=== PATIENT | male | born 1970 ===

== ENCOUNTER 2021-02-23 08:03 | Observation (INO) | payer BC ==
[2021-02-22 12:37] LABS: Absolute Lymphocytes (CBC) 1.7 K/uL (0.7-4.9); Basophils % 0.8 % (0-1.3); Hematocrit 49.4 % (39.6-49.0); Lymphocytes % 21.8 % (15.3-44.8); MPV 9.5 fL (7.6-11.3); RBC Red Blood Cell Count 5.57 M/uL (4.33-5.43)
[2021-02-22 12:52] LABS: Potassium 3.9 mmol/L (3.5-5.1)
--- NOTE | 2021-02-22 13:27 | RAD REPORT ---
EXAM DESCRIPTION: RAD - Chest Pa And Lat (2 Views) - 02/22/2021 1:19 pm CLINICAL HISTORY: PRE-OP SDS COMPARISON: No comparisons FINDINGS: Lines: None. Lungs: No evidence of edema or pneumonia. Pleural: No significant pleural effusions or pneumothorax. Cardiac: The heart size is within normal limits. Bones: No acute fractures. Bridging osteophytes in the spine. Other: IMPRESSION: No acute cardiopulmonary disease.
[2021-02-23] MEDS ORDERED: Ringers Lactate 1,000 ML IV ONE (08:42)
[2021-02-23] MEDS ORDERED: MIDAZOLAM HCL 2 MG/2 ML INJ ONE (11:19)
[2021-02-23] MEDS ORDERED: LIDOCAINE 1% MPF 5 ML VIAL ONE (11:19)
[2021-02-23] MEDS ORDERED: FENTANYL CITR 100 MCG/2 ML ONE ×2 (11:19→12:55)
[2021-02-23] MEDS ORDERED: propofoL 200 MG/20 ML VIAL IV ONE (11:19)
[2021-02-23] MEDS ORDERED: dexAMETHasone 10 MG/ML VIAL ONE (11:19)
[2021-02-23] MEDS ORDERED: ONDANSETRON 4 MG/2 ML VIAL ONE (11:20)
[2021-02-23] MEDS ORDERED: ROCURONIUM 50 MG/5 ML VIAL IV ONE ×2 (11:20→13:13)
[2021-02-23] MEDS ORDERED: BUPIVACAINE 0.5% PF 10 ML VIAL ONE (11:31)
[2021-02-23] MEDS ORDERED: CIPROFLOXACIN 400mg IV 400 MG/200 ML BAG IV ONE (11:49)
[2021-02-23] MEDS ORDERED: KETOROLAC 30 MG/ML INJ ONE (12:13)
[2021-02-23] MEDS: Ringers Lactate 1,000 ML IV ONE ×2 (12:42→13:45)
[2021-02-23] MEDS ORDERED: GLYCOPYRROLATE 0.2 MG/ML SYR ONE (14:00)
[2021-02-23] MEDS ORDERED: NEOSTIGMINE 1 MG/ML -5 ML ONE (14:01)
[2021-02-23] MEDS ORDERED: MORPHINE 10 MG/ML VIAL ONE (14:18)
--- NOTE | 2021-02-23 14:18 | P.BOP ---
Preoperative diagnosis: Large sigmoid colon incarcerated left inguinal area Postoperative diagnosis: same Primary procedure: Open repair of large incarcerated left inguinal area with mesh Personal Development Educator: IJEOMA ROCA ([employer]) Estimated blood loss: <50cc Specimen: hernia sac Findings: large amt of sigmoid colon incarcerated with adhesions to the sac Anesthesia: General Complications: None Implants: mesh plug and sheet Transferred to: Recovery Room Condition: Good
[2021-02-23] MEDS ORDERED: HYDROMORPHONE HCL 1 MG/ML INJ IV PRN (14:19)
[2021-02-23] MEDS ORDERED: ONDANSETRON 4 MG/2 ML VIAL IV PRN (14:19)
[2021-02-23 15:21] VITALS: O2SAT 93
[2021-02-23] MEDS: NA CHLORIDE 0.9% 1,000 ML IV SCH (16:45)
[2021-02-23] MEDS: HYDROCODONE/APAP 5/325 MG TAB PO PRN ×2 (18:19→23:41)
[2021-02-23 18:29] VITALS: BMI 43.4
[2021-02-23] MEDS: CIPROFLOXACIN 400mg IV 400 MG/200 ML BAG IV SCH (20:03)
[2021-02-23] MEDS ORDERED: TAMSULOSIN 0.4 MG SR CAP PO SCH (21:00)
--- NOTE | 2021-02-23 21:54 | OP ---
Date of Procedure: 02/23/2021 Surgeon: Casey Sky MD Paraffiner: Dr. Magaly Lopez. Preoperative Diagnosis: Large incarcerated left inguinal hernia with large amount of sigmoid colon. Postoperative Diagnosis: Large incarcerated left inguinal hernia with large amount of sigmoid colon. Procedure: Open repair of large incarcerated left inguinal hernia with mesh. Estimated Blood Loss: Less than 50 cc. Specimen: Hernia sac. Findings: Large amount of sigmoid colon incarcerated with adhesions to the hernia sac. This colon i s more than a feet and a half of it going all the way down to the scrotum. The patient is morbidly o bese with a large pannus. This hernia goes all the way down to compressing the left testicle. Proce dures started laparoscopically, but since we cannot reduce this content because of large, we have to convert to an open procedure. Even with that, we have to open the deep inguinal ring large enough to allow to all this content to be reduced. Intestines after all seemed to be viable. Anesthesia: General plus local. Implant: Large mesh, plug, and sheath. Indication: This is a case of a 50-year-old patient, comes to us with a large left inguinal hernia. He has been in pain and discomfort, some time sharp pain in the left area and we are concerned for a bowel compromise. The benefits, alternatives, and risks of laparoscopic versus open repair of left inguinal hernia with mesh fully explained to the patient, which include, but not limited to infection , bleeding, damage to adjacent structures, anesthesia complication, recurrence, chronic pain, CT, and even . He also understands this may not relieve the symptoms. He might need more than one esthela gical intervention. He understands we may be using mesh in that region. Pros and cons of mesh use w ere discussed with the patient. All the questions were answered to his satisfaction and at the end, he did consent for the use of mesh. The patient understands the importance of no heavy lifting. The most important part of losing some weight to minimize recurrence. The patient understood and signed the consent. Description Of Procedure: The patient was brought to the operating room and placed in supine positio n. Anesthesia was done without complication. The abdomen and left inguinal region were prepped and draped in a sterile fashion. This patient is morbidly obese, so we have to put him in Trendelenburg, make an incision in the infraumbilical region to go down to anterior rectus sheath is at least 6 cm. We were able to find the anterior rectus sheath and then moved the muscle laterally, placed pacemak er trocar with a balloon. Basically, we were able to, when the balloon was inflated, remove the ballo on and then after that, placed a 5 mm trocar in the suprapubic area. Once we noted the area and we d eveloped the preperitoneal space, we noticed that this hernia is so big that it cannot be reduced. W e do not want to compromise the bowel and pull it and damage that and after several attempts and we s een that continuing this way was not safe, we proceeded to convert this to an open procedure. We did that by making an incision in the left inguinal region. Incision was carried down to Ravinder's fasci a and then until we find the external oblique aponeurosis. We have to understand this patient also i n that area has a several centimeter of just thick abdomen, but we were able to find that nicely. We opened the external oblique aponeurosis in the direction of the fibers to connect the superficial in guinal ring and then, it will be noted the patient has so much contents in the bowel, and that bowel traveled all the way down to the scrotum. We have to reach down to the scrotum. We noticed this lef t testicle compressed by this sigmoid colon. Carefully and in delicate fashion, we proceeded to sepa rate the spermatic cord away from this hernia sac and when we opened the hernia sac, we see a large a mount of intestines. The content looks viable, but due to the large amount of it, we cannot reduce it back into the abdomen, so we have to go to the deep inguinal ring and try and open that a little bit more enough to be able to then carefully reduce this bowel into the abdomen. Once we have that, we checked the area. We have to remove some adhesions of the large bowel to the hernia sac to be able t o be reduced and we did that without any enterotomies. We twisted the hernia sac, making sure there was no bowel in between and suture ligated that with Prolene x1. This leave a large defect in the in guinal canal, so we have to reconstruct the inguinal canal and the way we did that is by making sure the spermatic cord is safe, put a Kirk in that area and then I proceeded then to place a #1 Prolen e at the pubic tubercle, shelving edge of inguinal ligament and transversalis fascia making sure the nerves were protected at all times. Once we had the floor of the canal reconstructed, then we placed a mesh plug large in the deep inguinal ring and securing that in place with VersaTack and making esthela e that the spermatic cord structures are intact. After we have that, when we placed a mesh sheath, t hat mesh sheath was secured in place to the pubic tubercle with VersaTack, shelving edge of the ingui nal ligament, transversalis fascia, and the tails of the loop around the spermatic cord without stran gulation. Obviously, this took significant amount of time since the large area in this patient, but we were able to do it without any bleeding. So, after that, we proceeded then to bring the ilioingui nal nerve and iliohypogastric nerve that was previously identified and protected into the inguinal ca nal, reconstructed the superficial inguinal ring, closed the external oblique aponeurosis making sure the nerves were not included. The area was irrigated. After that, making sure that the spermatic c ord structures and the testicles are intact without twists, then we proceeded to close the Ravinder's f ascia. We closed also the subcutaneous tissue with chromic and then the skin with francisco. Sponge c ount and instrument count were correct. The patient tolerated the procedure well. The patient was s ent to Recovery in stable condition. I believe this patient will develop an ileus. He has a large a mount of intestines incarcerated in that all the way down to the scrotum. I believe the manipulation of his intestines will give him ileus and it will give his more pain that may not be controlled with medication by mouth. I discussed that with the patient and decision was made to keep the person brittani lyn in observation. We are going to give him clear liquid and hydration tonight. If by tomorrow we can control his pain with p.o. medication, then we may be able to send him home in those. Obvious ly, that bowel has been there for some time, so we are going to cover him with some antibiotics too. We did not see any ischemia, although the bowel being incarcerated for some time, we are going to co meagan him with the antibiotics. We encouraged him ambulation, incentive spirometry, DVT prophylaxis to minimize any chance of DVTs. He understood. He was admitted to the hospital. ANTONIO/LATOSHA Voice ID: [id number] Report ID: [id number]
[2021-02-24] MEDS: NA CHLORIDE 0.9% 1,000 ML IV SCH (00:12)
[2021-02-24 04:00] LABS: Absolute Lymphocytes (CBC) 0.9 K/uL (0.7-4.9); Basophils % 0.3 % (0-1.3); Hematocrit 45.6 % (39.6-49.0); Lymphocytes % 6.1 % (15.3-44.8); MPV 9.5 fL (7.6-11.3); RBC Red Blood Cell Count 5.13 M/uL (4.33-5.43)
[2021-02-24 04:07] LABS: Potassium 4.7 mmol/L (3.5-5.1)
[2021-02-24 06:34] LABS: Blood Morphology Comment NOT SEEN (NOT SEEN); Platelet Estimate ADEQ
[2021-02-24 08:29] VITALS: BP 110/71; TEMP 97
[2021-02-24] MEDS: HYDROCODONE/APAP 5/325 MG TAB PO PRN (08:43)
[2021-02-24] MEDS: CIPROFLOXACIN 400mg IV 400 MG/200 ML BAG IV SCH (08:43)
--- NOTE | 2021-02-24 09:01 | P.DS ---
Admission Date: 02/23/21 Discharge Date: 02/24/21 Disposition: ROUTINE DISCHARGE Discharge Condition: GOOD - Problems (1) Incarcerated left inguinal hernia Current Visit: Yes Status: Acute Hospital Course: unremarkable, tolerating diet and pain medication swithed to PO Vital Signs/Physical Exam: Temp Pulse Resp BP Pulse Ox 97.0 F 73 16 110/71 94 02/24/21 08:00 02/24/21 08:00 02/24/21 08:43 02/24/21 08:00 02/24/21 08:43 General: Alert, In no apparent distress, Oriented x3, Cooperative HEENT: PERRLA Neck: Supple Respiratory: Normal air movement Cardiovascular: No edema, Normal pulses Gastrointestinal: Soft and benign (intact surgical site) Musculoskeletal: No erythema, No tenderness, No warmth Integumentary: No rashes, No breakdown Neurological: Normal speech Urinary: Other (voiding without a problem) Laboratory Data at Discharge: WBC 14.20 K/uL (4.3-10.9) H D 02/24/21 03:23 Hgb 14.8 g/dL (13.6-17.9) 02/24/21 03:23 Hct 45.6 % (39.6-49.0) 02/24/21 03:23 Plt Count 195 K/uL (152-406) 02/24/21 03:23 Sodium 137 mmol/L (136-145) 02/24/21 03:23 Potassium 4.7 mmol/L (3.5-5.1) 02/24/21 03:23 BUN 19 mg/dL (7-18) H 02/24/21 03:23 Creatinine 1.15 mg/dL (0.55-1.3) 02/24/21 03:23 Glucose 174 mg/dL (74-106) H 02/24/21 03:23 Home Medications: Albuterol Inhaler [Ventolin Inhaler*] 2 inhaler PO QID PRN 02/22/21 Ciprofloxacin HCl [Cipro 500 MG Tablet] 500 mg PO BID #10 tab 02/24/21 Hydrocodone 5/APAP 325 [[place] 5/325*] 1 tab PO Q4H PRN tab 02/24/21 New Medications: Ciprofloxacin HCl [Cipro 500 MG Tablet] 500 mg PO BID #10 tab Physician Discharge Instructions: Keep area dry and clean for 24h then may remove outer dressing and shower. Cold compress to inguinal area x24h Diet: AHA Activity: No lifting more than 10 lbs Followup: Casey Sky MD [ACTIVE - CAN ADMIT] - 1 Week
== END 2021-02-24 11:06 | disposition home or self-care (01) ==
LOC: OR 08:03 → 2ND 15:26
PROVIDERS: ADMIT Surgery; ATTEND Surgery
PROC: 0YU60JZ Supplement Left Inguinal Region with Synthetic Substitute, Open Approach (ICD-10-PCS; principal; 2021-02-23 10:15)
DX: K40.30 Unilateral inguinal hernia, with obstruction, without gangrene, not specified as recurrent (principal); E66.01 Morbid (severe) obesity due to excess calories; Z68.41 Body mass index [BMI] 40.0-44.9, adult; Z20.822 Contact with and (suspected) exposure to COVID-19
CPT/HCPCS: 93005; 85025 ×2; 80048 ×2; 36415 ×2; 88302; 71046; 97161; 49507; U0003; J2704; J2250; J3010 ×2; J1100; J1170; J2710; J7120 ×2; J7030 ×2; J2405; J0744 ×3; G0378; G0379